=== PATIENT | female | born 1940 | race Caucasian/White ===

== ENCOUNTER 2016-10-27 05:24 | Inpatient (IN) | payer OTHER, MEDICARE ==
[2016-10-12 09:07] LABS: HEMATOCRIT 39.3 % (37.0-47.0); HEMOGLOBIN 13.2 gm/dL (12.0-15.0); MCH 30.5 pg (26.0-34.0); MCHC 33.5 g/dL (28.0-37.0); MCV 90.9 fL (80.0-100.0); RBC 4.32 mil/uL (4.20-5.00); RDW 14.1 % (10.5-14.5); WBC 5.1 thou/uL (4.0-11.0)
[2016-10-12 09:08] LABS: URINE BILIRUBIN NEGATIVE (Negative); URINE BLOOD NEGATIVE (Negative); URINE COLOR YELLOW; URINE GLUCOSE-RANDOM* NEGATIVE (Negative); URINE KETONES NEGATIVE (Negative); URINE LEUKOCYTES-REFLEX TRACE (Negative); URINE PROTEIN (DIPSTICK) NEGATIVE (Negative); URINE SPECIFIC GRAVITY 1.015 (1.003-1.035); URINE UROBILINOGEN 0.2 E.U./dl (0.2-1.0)
[2016-10-12 09:20] LABS: PROTIME 10.7 Seconds (9.3-11.4)
[2016-10-12 09:26] LABS: ALBUMIN 3.4 g/dL (3.4-5.0); CALCIUM 8.7 mg/dL (8.5-10.1); CREATININE 0.8 mg/dL (0.6-1.0); POTASSIUM 4.4 mmol/L (3.5-5.1)
[~2016-10-27] VITALS: Ht 160 cm; Wt 63.5 kg
--- NOTE | ~2016-10-27 | O ---
[facility] [place] [address] OPERATIVE REPORT Name: LONA ROJO Room #: 436-P ADM IN M.R.#: [id number] Admission: 10/27/16 Attend Phys: Glenn Solorio MD Discharge: Date of : 42 Report #: [id number] THIS REPORT FOR: //name// CC: Juan Solorio DATE OF SERVICE: 10/27/2016 PREOPERATIVE DIAGNOSIS: Left knee degenerative joint disease, severe. POSTOPERATIVE DIAGNOSIS: Left knee degenerative joint disease, severe. PROCEDURE: Left total knee arthroplasty. SURGEON: Glenn Solorio MD. INSTRUMENT MAKER: Jj Bowden, nurse practitioner. INDICATIONS FOR INSTRUMENT MAKER: During the course of operation, extensive manipulation, retraction, and limb positioning was required. This was afforded to me by my optical assistant. ANESTHESIA: General. INDICATIONS: See [facility] IMPLANTS UTILIZED: We used a DePuy PFC knee system, cruciate retaining femoral component press fit size 3, size 3 tibial tray with a 10 mm insert, and a 38 mm oval dome patella. DESCRIPTION OF PROCEDURE: After adequate general anesthesia had been obtained, the patient's left lower extremity was prepped and draped in the usual meticulous sterile fashion. Limb was exsanguinated with gravity, and tourniquet was inflated to 350 torr. An anterior midline incision was made. SubQ divided sharply. Hemostasis was obtained with electrocautery. Medial parapatellar incision was made. Infrapatellar fat pad was excised. Medial release performed along the joint line due to the patient's valgus deformity. The drill was used to drill the distal femur. This hole was enlarged, irrigated, suctioned, and the intramedullary guide placed the full length of the femur. The distal femoral cutting guide was pinned to appropriate height. We did set our valgus angle at 7 degrees. The distal femoral cut was made. We used the measuring device and determined the size 3 as appropriate size for this patient. The distal femur was marked, cutting guide impacted in to place, and the anterior, posterior, and chamfer cuts were made. Rongeur was used to remove additional osteophytes. [facility] [address] [place] [address] OPERATIVE REPORT Name: LONA ROJO Room #: 436-P ADM IN M.R.#: [id number] Admission: 10/27/16 Attend Phys: Glenn Solorio MD Discharge: Date of : 42 Report #: [id number] At this time, the ACL was transected, tibia translated anteriorly, and menisci were excised. Drill was used to drill the central portion of the tibia. This hole was enlarged, irrigated, suctioned, and the intramedullary guide placed the full length of the tibia. The proximal tibial cutting guide placed at appropriate height. Proximal tibial cut was made, 3 tray gave us the best coverage on the tibia as well. We put the trial components in position. With #10 spacer, she had the best flexion and extension gap. Patella tracked normally. Patella was then measured. Cutting guide clamped into place, patellar cut was made. #38 template gave us the best coverage. Pedicles were drilled, trial components put in position. It tracked normally as well. At this time, the knee was taken through several cycles of flexion and extension. The tibial tray rotation was marked, distal femur drilled. Tibial keel cuts were made and the trial components were then removed. The knee was irrigated with both pulse lavage and antibiotic irrigation. Bone plugs were placed in the proximal tibia and distal femur. The cement was vacuum mixed, and when it reached the appropriate consistency, the knee was thoroughly dried. The tibial tray was cemented in to place. Excess cement was removed. The polyethylene liner was impacted in to place and the femur impacted in to place, and the knee was taken out to 30 degrees of flexion, uniform compression placed across the components. Patellar button was then cemented into place and again excess cement was removed. Irrigation was placed in the wound and allowed to rest in the wound until the cement fully cured. When it had done so, the knee was irrigated, dried thoroughly, and inspected. Drains were placed superolaterally both deep and superficial. The retinacular layer closed with a combination of interrupted [id number] #1 Vicryl, as well as running #1 Tevdek. SubQ closed with 2-0 Monocryl, skin closed with ridge. Sterile compressive dressing was applied. Tourniquet deflated. By: [id number] Glenn Solorio MD /nt
[~2016-10-27 05:24] MED LIST: CALCIUM 500 WI1 EAC4 PO; ESTRACE1 TUBE VAG; EVISTA PO; ONE-A-DAY WOMENS PO
[2016-10-27 07:03] VITALS: BP 124/74
[2016-10-27 19:18] VITALS: BP 119/62
[2016-10-27 20:00] VITALS: BP 119/62
[2016-10-28 04:24] VITALS: BP 116/50
[2016-10-28 06:04] LABS: HEMATOCRIT 34.5 % (37.0-47.0); HEMOGLOBIN 11.4 gm/dL (12.0-15.0); MCH 30.8 pg (26.0-34.0); MCHC 33.1 g/dL (28.0-37.0); MCV 92.8 fL (80.0-100.0); RBC 3.71 mil/uL (4.20-5.00); RDW 14.3 % (10.5-14.5); WBC 12.1 thou/uL (4.0-11.0)
[2016-10-28 08:00] VITALS: BP 104/44
[2016-10-28 16:00] VITALS: BP 101/44
[2016-10-28 19:30] VITALS: BP 123/46
[2016-10-29 04:33] VITALS: BP 122/48
[2016-10-29 05:52] LABS: HEMATOCRIT 30.9 % (37.0-47.0); HEMOGLOBIN 10.7 gm/dL (12.0-15.0); MCH 31.7 pg (26.0-34.0); MCHC 34.7 g/dL (28.0-37.0); MCV 91.4 fL (80.0-100.0); RBC 3.38 mil/uL (4.20-5.00); RDW 14.4 % (10.5-14.5); WBC 9.5 thou/uL (4.0-11.0)
[2016-10-29 07:25] VITALS: BP 112/59
[2016-10-29 12:59] VITALS: BP 112/59
[2016-10-29 13:01] VITALS: BP 112/59
[2016-10-29 15:38] VITALS: BP 109/60
[2016-10-29 19:08] VITALS: BP 113/50
[2016-10-30 05:46] VITALS: BP 118/64
[2016-10-30 05:58] LABS: HEMATOCRIT 30.2 % (37.0-47.0); HEMOGLOBIN 10.3 gm/dL (12.0-15.0); MCH 31.3 pg (26.0-34.0); MCHC 34.1 g/dL (28.0-37.0); MCV 91.7 fL (80.0-100.0); RBC 3.29 mil/uL (4.20-5.00); RDW 14.1 % (10.5-14.5); WBC 7.8 thou/uL (4.0-11.0)
[2016-10-30] MEDS ORDERED: HYDROCODONE-APA1 TA1 PO (07:02)
[2016-10-30] MEDS ORDERED: XARELTO10 MG PO (07:02)
[2016-10-30 07:40] VITALS: BP 124/69
[2016-10-30 09:46] VITALS: BP 112/59
[2016-10-30 16:22] VITALS: BP 112/59
== END 2016-10-30 18:13 | disposition home health service (06) | DRG 470 ==
LOC: 4S 05:24 → TBA 05:24 → PRE 05:54 → 4S 12:00 → PRE 14:30 → 4S 10-30 18:13
PROVIDERS: Family Medicine; Orthopaedic Surgery
PROC: 0SRD0J9 Replacement of Left Knee Joint with Synthetic Substitute, Cemented, Open Approach (ICD-10-PCS; principal; 2016-10-27)
DX: M17.12 Unilateral primary osteoarthritis, left knee (principal); D64.9 Anemia, unspecified; I10 Essential (primary) hypertension
CPT/HCPCS: 10102; 50010; 50101; 50415; 50455; 50612; 50954; 51130; 51225; 51320; 51412; 51771; 52001; 52282; 53000; 53078; 53364; 56525; 56527; 62110; 62900; 64042; 64043; 70005

== ENCOUNTER → 2019-03-28 | Outpatient (CLI) | payer OTHER, MEDICARE ==
[~2019-03-28] MED LIST changes: +HYDROCODONE-APA1 TA1 PO; +XARELTO10 MG PO
== END ==
LOC: RAD 02:02
DX: Z12.31 Encounter for screening mammogram for malignant neoplasm of breast (principal)

== ENCOUNTER → 2019-05-24 | Outpatient (CLI) | payer OTHER, MEDICARE ==
[~2019-05-24] MED LIST changes: +CALCIUM +D & M1 EACH PO; +CIPROFLOXACIN500 M1 PO; +DARVOCET-N 1001 EACH PO; +ONE DAILY MULT1 EAC1 PO; +PHENERGAN 25 MG25 M1 PO
== END ==
LOC: MRI
DX: M48.07 Spinal stenosis, lumbosacral region (principal); M43.16 Spondylolisthesis, lumbar region; M51.26 Other intervertebral disc displacement, lumbar region; M12.88 Other specific arthropathies, not elsewhere classified, other specified site

== ENCOUNTER → 2020-04-25 | Outpatient (CLI) | payer OTHER, MEDICARE | LOC: RAD 08:09 | PROVIDERS: ATTEND Family Medicine | DX: Z12.31 Encounter for screening mammogram for malignant neoplasm of breast (principal) ==

== ENCOUNTER → 2021-04-29 | Outpatient (CLI) | payer OTHER, MEDICARE | LOC: RAD 10:30 | PROVIDERS: ATTEND Family Medicine | DX: Z12.31 Encounter for screening mammogram for malignant neoplasm of breast (principal); N64.89 Other specified disorders of breast ==